=== PATIENT | female | born 1990 | race Caucasian/White ===

== ENCOUNTER 2018-01-19 10:40 | Emergency (ER) | payer BC ==
[2018-01-19 10:47] VITALS: BMI 25.0
[2018-01-19 11:35] LABS: HCG,QUALITATIVE URINE NEGATIVE; URINE APPEARANCE CLEAR; URINE BILIRUBIN NEGATIVE (<2.0 mg/dL); URINE COLOR LTYELLOW; URINE GLUCOSE (UA) NEGATIVE (NEGATIVE); URINE KETONE NEGATIVE (NEGATIVE); URINE LEUK ESTERASE NEGATIVE (NEGATIVE); URINE NITRITE NEGATIVE (NEGATIVE); URINE UROBILINOGEN NEGATIVE mg/dL (0.2-1.0)
[2018-01-19 11:39] LABS: URINE PROTEIN 1+ (NEGATIVE)
[2018-01-19 11:41] LABS: EPI CELLS RARE /HPF (FEW); URINE MUCUS RARE
--- NOTE | 2018-01-19 11:45 | PDOC ---
History of Present Illness - General History Source: Patient Exam Limitations: No Limitations - History of Present Illness Initial Comments: 01/19/18 12:20 The patient is a 27 year old female presenting [facility], with a significant past medical history of ovarian cyst, who presents to the emergency department complaining of abdominal pain, back pain, fever and chills since last night. She reports that she went to an urgent care today and was referred to the ED for further evaluation. Urine test at urgent care was negative as per patient and her fever was as high as 102 F. She was also noted to have white and red blood cells in her urine. She describes her abdominal pain as a burning / cramping sensation in her lower quadrants bilaterally and suprapubic region. The patient denies chest pain, shortness of breath, headache or dizziness. Denies nausea, vomiting, diarrhea and constipation. Allergies: None Past surgical history: None reported Social History: No alcohol, tobacco or drug use reported <Jace Carrillo - Last Filed: 01/19/18 12:16> - General History Source: Patient Exam Limitations: No Limitations <Radha Manuel - Last Filed: 02/22/18 08:56> - General Chief Complaint: Pain Stated Complaint: BODY ACHES, FEVER Past History <Jace Carrillo - Last Filed: 01/19/18 12:16> - Past Medical History COPD: No Other medical history: ovarian cysts - Suicide/Smoking/Psychosocial Hx Smoking History: Never smoked <Radha Manuel - Last Filed: 02/22/18 08:56> - Past Medical History Allergies/Adverse Reactions: Allergies Allergy/AdvReac Type Severity Reaction Status Date / Time No Known Allergies Allergy Verified 01/19/18 10:47 Home Medications: Ambulatory Orders Ciprofloxacin [Cipro (Restricted To Id)] 500 mg PO Q12H 01/19/18 Naproxen Sodium 220 mg PO BID PRN #30 tablet 01/19/18 Nitrofurantoin Monohyd/M-Cryst [Macrobid -] 100 mg PO BID #14 capsule 01/19/18 Review of Systems - Review of Systems Comments:: 01/19/18 12:20 GENERAL/CONSTITUTIONAL: (+) Fever and chills. No weakness. HEAD, EYES, EARS, NOSE AND THROAT: No change in vision. No ear pain or discharge. No sore throat. CARDIOVASCULAR: No chest pain or shortness of breath. RESPIRATORY: No cough, wheezing, or hemoptysis. GASTROINTESTINAL: (+) Abdominal pain. No nausea, vomiting, diarrhea or constipation. GENITOURINARY: No dysuria, frequency, or change in urination. MUSCULOSKELETAL: No joint or muscle swelling or pain. No neck or back pain. SKIN: No rash NEUROLOGIC: No headache, vertigo, loss of consciousness, or change in strength/ sensation. ENDOCRINE: No increased thirst. No abnormal weight change. HEMATOLOGIC/LYMPHATIC: No anemia, easy bleeding, or history of blood clots. ALLERGIC/IMMUNOLOGIC: No hives or skin allergy. <Jace Carrillo - Last Filed: 01/19/18 12:16> *Physical Exam - Vital Signs Last Vital Signs Temp Pulse Resp BP Pulse Ox 100.7 F H 106 H 20 117/62 99 01/19/18 10:43 01/19/18 10:43 01/19/18 10:43 01/19/18 10:43 01/19/18 10:43 - Physical Exam Comments: 01/19/18 12:21 GENERAL: Awake, alert, and fully oriented, in no acute distress HEAD: No signs of trauma EYES: PERRLA, EOMI, sclera anicteric, conjunctiva clear ENT: Auricles normal inspection, nares patent. Moist mucosa NECK: Normal ROM, supple, no JVD, or masses LUNGS: Breath sounds equal, clear to auscultation bilaterally. No wheezes, and no crackles HEART: Regular rate and rhythm, normal S1 and S2, no murmurs, rubs or gallops ABDOMEN: (+) Bilateral lower quadrant tenderness and suprapubic tenderness, no rebound or guarding. Soft, normoactive bowel sounds. No masses. EXTREMITIES: Normal range of motion, no edema. No clubbing or cyanosis. No cords, erythema, or tenderness NEUROLOGICAL: Alert and oriented x 3. Moves all extremities. Face is symmetric. SKIN: Warm, Dry, normal turgor, no rashes or lesions noted. <Jace Carrillo - Last Filed: 01/19/18 12:16> - Vital Signs Last Vital Signs Temp Pulse Resp BP Pulse Ox 100.7 F H 106 H 20 117/62 99 01/19/18 10:43 01/19/18 10:43 01/19/18 10:43 01/19/18 10:43 01/19/18 10:43 <Radha Manuel - Last Filed: 02/22/18 08:56> Procedures - Bedside Ultrasound Other: renal ultrasound <Radha Manuel - Last Filed: 02/22/18 08:56> ED Treatment Course - ADDITIONAL ORDERS Additional order review: Laboratory Results 01/19/18 11:25 Urine Color Ltyellow Urine Appearance Clear Urine pH 6.0 Ur Specific [place] 1.016 Urine Protein 1+ H Urine Glucose (UA) Negative Urine Ketones Negative Urine Blood 2+ H Urine Nitrite Negative Urine Bilirubin Negative Urine Urobilinogen Negative Ur Leukocyte Esterase Negative Urine WBC (Auto) 1 Urine RBC (Auto) 9 Ur Epithelial Cells Rare Urine Mucus Rare Urine HCG, Qual Negative <Jace Carrillo - Last Filed: 01/19/18 12:16> - LABORATORY CBC & Chemistry Diagram: 01/19/18 12:30 01/19/18 12:10 - ADDITIONAL ORDERS Additional order review: Laboratory Results 01/19/18 11:25 Urine HCG, Qual Negative <Radha Manuel - Last Filed: 02/22/18 08:56> Medical Decision Making - Medical Decision Making 01/19/18 11:37 27 yo F with h/o ovarian cyst here wtih c/o bilat lower quad pain, suprapubic pain, dysrua, subjective chills and fever. pain constant, crampy. started last pm 01/19/18 13:35 Patient denies any history of similar pain in the past. No known history of kidney stones denies any vaginal discharge. Was seen at the urgent care and noted to have hematuria however the patient is just finishing her menstruation . Was given ceftriaxone 250 mg IM and sent to the ED for evaluation patient states pain is worse with walking no known surgical history On exam the patient has bilateral lower quadrant superpubic tenderness no CVA tenderness. Pelvic is with scant old blood in the vaginal vault no CMT mild left adnexal tenderness but no adnexal masses X Differential diagnosis includes renal colic, pelvic inflammatory disease, UTI or pyelonephritis, appendicitis is less likely, ruptured ovarian cyst and torsion considered. We'll form bedside focused ultrasound renal, and pelvic ultrasound depending on findings we'll consider CT abdomen and pelvis to evaluate further for other causes. focused ED ultrasound of bilateral kidneys obtained, indication: hematuria , flank pain. bilateral kidneys were scanned in two planes, saggital and transvers. No hydronephrosis noted. Bladder is nondistended incidental left adnexal cyst measuring 1.86 cm Impression: no hydronephrosis, undistended bladder, incidental left adnexal cyst <Radha Manuel - Last Filed: 02/22/18 08:56> *DC/Admit/Observation/Transfer - Attestations Scribe Attestion: 01/19/18 12:22 Documentation prepared by Jace Carrillo, acting as biomedical equipment tech for Radha Manuel MD <Jace Carrillo - Last Filed: 01/19/18 12:16> <Radha Manuel - Last Filed: 02/22/18 08:56> Diagnosis at time of Disposition: Hemorrhagic cyst - Discharge Dispostion Disposition: HOME Condition at time of disposition: Stable - Prescriptions Prescriptions: Naproxen Sodium 220 mg PO BID PRN #30 tablet PRN Reason: Pain Nitrofurantoin Monohyd/M-Cryst [Macrobid -] 100 mg PO BID #14 capsule - Referrals Referrals: Corey Pierson MD [Staff Physician] - - Patient Instructions Printed Discharge Instructions: DI for Ovarian Cyst Additional Instructions: Ms Potter Thank you for coming in to the ER today Please be sure to follow up with your Application Security Engineer within 2 -3 business days You must return to the ER for increased pain, pain when your abdomen is palpated , if you notice abdominal distention, if you have heavy vaginal bleeding - saturating 2 pads/hour for 2 hours OR any thing that concerns you Please take medications as prescribed - Post Discharge Activity Forms/Work/School Notes: Back to Work
[2018-01-19] MEDS ORDERED: SODIUM CHLORIDE 0.9% 500 ML INFUS.BAG IV ONE (12:00)
[2018-01-19 12:42] LABS: BASO % 0.4 % (0-2.0); HEMATOCRIT 37.6 % (32.4-45.2); HEMOGLOBIN 12.9 GM/dL (10.7-15.3); LYMPH % 12.8 % (8-40); MCH 31.5 pg (25.7-33.7); MCHC 34.3 g/dl (32.0-36.0); MEAN CELL VOLUME 91.6 fl (80-96); MONO % 5.8 % (3.8-10.2); PLATELET COUNT 220 K/MM3 (134-434); RDW 13.2 % (11.6-15.6); WHITE BLOOD COUNT 8.5 K/mm3 (4.0-10.0)
[2018-01-19] MEDS ORDERED: ACETAMINOPHEN 1000 MG/100 ML VIAL (NON FORMULARY) IVPB ONE (12:47)
[2018-01-19] MEDS ORDERED: ACETAMINOPHEN INJECTION 100 ML IVPB ONE (12:50)
[2018-01-19 13:05] LABS: ANION GAP 5 (8-16); BLOOD UREA NITROGEN 7 mg/dL (7-18); CALCIUM 8.7 mg/dL (8.5-10.1); CHLORIDE 103 mmol/L (98-107); CO2 27 mmol/L (21-32); CREATININE 0.8 mg/dL (0.55-1.02); GLUCOSE,RANDOM 91 mg/dL (74-106); POTASSIUM 3.9 mmol/L (3.5-5.1); SGOT/AST 15 U/L (15-37); SGPT/ALT 15 U/L (12-78); SODIUM 135 mmol/L (136-145)
[2018-01-19 13:06] LABS: ALK PHOS 77 U/L (45-117); BILIRUBIN,TOTAL 1.3 mg/dL (0.2-1.0); TOT PROT 7.9 g/dl (6.4-8.2)
[2018-01-19] MEDS ORDERED: KETOROLAC TROMETHAMINE 30 MG/1 ML VIAL IVPUSH ONE (15:43)
[2018-01-19] MEDS ORDERED: KETOROLAC TROMETHAMINE 30 MG/1 ML VIAL ONE (16:01)
[2018-01-19 17:55] VITALS: BP 104/57; PULSE 70; TEMP 98.2
--- NOTE | 2018-01-19 18:04 | PDOC ---
*Physical Exam - Vital Signs Last Vital Signs Temp Pulse Resp BP Pulse Ox 98.2 F 70 16 104/57 98 01/19/18 17:55 01/19/18 17:55 01/19/18 17:55 01/19/18 17:55 01/19/18 17:55 ED Treatment Course - LABORATORY CBC & Chemistry Diagram: 01/19/18 12:30 01/19/18 12:10 - ADDITIONAL ORDERS Additional order review: Laboratory Results 01/19/18 01/19/18 12:10 11:25 Sodium 135 L Potassium 3.9 Chloride 103 Carbon Dioxide 27 Anion Gap 5 L BUN 7 Creatinine 0.8 Creat Clearance w eGFR > 60 Random Glucose 91 Calcium 8.7 Total Bilirubin 1.3 H AST 15 ALT 15 Alkaline Phosphatase 77 Total Protein 7.9 Albumin 4.0 Urine Color Ltyellow Urine Appearance Clear Urine pH 6.0 Ur Specific [place] 1.016 Urine Protein 1+ H Urine Glucose (UA) Negative Urine Ketones Negative Urine Blood 2+ H Urine Nitrite Negative Urine Bilirubin Negative Urine Urobilinogen Negative Ur Leukocyte Esterase Negative Urine WBC (Auto) 1 Urine RBC (Auto) 9 Ur Epithelial Cells Rare Urine Mucus Rare Urine HCG, Qual Negative 01/19/18 12:30 RBC 4.10 MCV 91.6 MCHC 34.3 RDW 13.2 MPV 10.0 Neutrophils % 81.0 Lymphocytes % 12.8 Monocytes % 5.8 Eosinophils % 0.0 Basophils % 0.4 - Medications Given in the ED: ED Medications Discontinued Medications Generic Name Dose Route Start Last Admin Trade Name Yonis PRN Reason Stop Dose Admin Acetaminophen 1,000 mg 01/19/18 12:47 01/19/18 12:48 Ofirmev Injection - IVPB 01/19/18 12:48 1,000 mg ONCE ONE Administration Ketorolac Tromethamine 30 mg 01/19/18 15:43 01/19/18 15:58 Toradol Injection - IVPUSH 01/19/18 15:44 30 mg ONCE ONE Administration Sodium Chloride 1,000 ml 01/19/18 12:00 01/19/18 12:38 Normal Saline - IV 01/19/18 12:01 1,000 ml ONCE ONE Administration Medical Decision Making - Medical Decision Making 01/19/18 17:59 I received Ms Potter on sign out Briefly, she is a 27 yo F who presented to the ER with a complaint of abdominal pain Pelvic US demonstrated hemorrhagic cyst Pt noted to have a temp of 100.[address] of the abd and pelvis CT deomnstrates Nml liver, gallbladder, pancreas, adrenals and spleen Left renal cyst Normal appendix Bilateral ovarian cysts largest one in the right ovary measuring 3.4 cm, Left ovary measuring 2 cm ? UTI Will discharge on pain medications AND Keflex Laboratory Tests 01/19/18 12:30 Hgb 12.9 Hct 37.6 Clinical impression: hemorrhagic cyst 01/19/18 18:03 *DC/Admit/Observation/Transfer Diagnosis at time of Disposition: Hemorrhagic cyst - Discharge Dispostion Disposition: HOME Condition at time of disposition: Stable Decision to Admit order: No - Referrals Referrals: Corey Pireson MD [Staff Physician] - - Patient Instructions Printed Discharge Instructions: DI for Ovarian Cyst Additional Instructions: Ms Potter Thank you for coming in to the ER today Please be sure to follow up with your Red Lead Burner within 2 -3 business days You must return to the ER for increased pain, pain when your abdomen is palpated , if you notice abdominal distention, if you have heavy vaginal bleeding - saturating 2 pads/hour for 2 hours OR any thing that concerns you Please take medications as prescribed - Post Discharge Activity Forms/Work/School Notes: Back to Work
== END 2018-01-19 18:26 | disposition home or self-care (01) ==
LOC: JER 10:40
PROC: 3E033NZ Introduction of Analgesics, Hypnotics, Sedatives into Peripheral Vein, Percutaneous Approach (ICD-10-PCS; principal; 2018-01-19)
PROC: 3E0333Z Introduction of Anti-inflammatory into Peripheral Vein, Percutaneous Approach (ICD-10-PCS; 2018-01-19)
DX: N83.202 Unspecified ovarian cyst, left side (principal); N83.201 Unspecified ovarian cyst, right side
CPT/HCPCS: 36415; 74177-TC; 76830-TC; 80053; 81003; 81015; 84703; 85025; 87086; 99283-25; J0131

== ENCOUNTER 2019-01-16 20:30 | Emergency (ER) | payer BC, OTHER ==
[2019-01-16] MEDS ORDERED: SODIUM CHLORIDE 1,000 ML IV STA (20:46)
--- NOTE | 2019-01-16 20:46 | PDOC ---
Rapid Medical Evaluation Medical Evaluation: Allergies Allergy/AdvReac Type Severity Reaction Status Date / Time No Known Allergies Allergy Verified 01/19/18 10:47 I have performed a brief in-person evaluation of this patient. The patient presents with a chief complaint of: c/o diarrhea x 5 days (almost 7- 8 episodes a day); denies fever, vomiting; was on cruise recently; got Cipro from urgent care 3 days ago but it is not helping Pertinent physical exam findings: In NAD I have ordered the following: Labs, IVF The patient will proceed to the ED for further evaluation. 01/16/19 20:42
[2019-01-16 20:48] VITALS: BP 112/52; PULSE 82; TEMP 99; BMI 25.2
[2019-01-16 21:15] LABS: BASO % 0.5 % (0-2.0); EOS % 1.1 % (0-4.5); HEMATOCRIT 38.3 % (32.4-45.2); HEMOGLOBIN 12.9 GM/dL (10.7-15.3); LYMPH % 31.4 % (8-40); MCH 31.6 pg (25.7-33.7); MCHC 33.8 g/dl (32.0-36.0); MEAN CELL VOLUME 93.5 fl (80-96); MEAN PLT VOLUME 10.6 fl (7.5-11.1); MONO % 8.9 % (3.8-10.2); NEUT % 58.1 % (42.8-82.8); PLATELET COUNT 242 K/MM3 (134-434); RDW 13.3 % (11.6-15.6); WHITE BLOOD COUNT 7.1 K/mm3 (4.0-10.0)
[2019-01-16 21:49] LABS: ALBUMIN 3.8 g/dl (3.4-5.0); BILIRUBIN,TOTAL 0.4 mg/dL (0.2-1); CALCIUM 8.9 mg/dL (8.5-10.1); CREATININE 0.7 mg/dL (0.55-1.3); MAGNESIUM 2.3 mg/dL (1.8-2.4); POTASSIUM 3.9 mmol/L (3.5-5.1); TOT PROT 7.5 g/dl (6.4-8.2)
--- NOTE | 2019-01-16 22:03 | PDOC ---
History of Present Illness - General Chief Complaint: Pain Stated Complaint: ABD PAIN Time Seen by Provider: 01/16/19 20:43 History Source: Patient Exam Limitations: No Limitations - History of Present Illness Travel History: Yes (Cruise from [place] to [facility] returned on 01/09) Initial Comments: 01/16/19 21:52 HISTORY OF PRESENT ILLNESS: 28-year-old woman past medical history of ovarian cyst who presents emergency department for evaluation of diarrhea for 5 days. Patient reports stick a cruise from [place] to [facility] for which returns [place] on 01/09. 2 days after returning from the cruise patient developed abdominal cramping and loose watery stools. Patient was reporting 10-12 bowel movements daily with yellow/green-colored stools. Patient was seen at urgent care Center 3 days ago and was started on ciprofloxacin 500 mg twice a day. Patient reports her bowel frequency is decreased approximately 5 times today. Patient reports bowel movement is still yellow/green but has firmed up a little. Patient attributes this to eating plantains. Patient reports cramping in her belly has become less intense currently rates 4/10. No sick contacts. Cruise from [place] to [facility] returning on PAST MEDICAL HISTORY: Denies past medical history SURGICAL HISTORY: Denies ALLERGIES: No known drug allergies REVIEW OF SYSTEMS General/Constitutional: Denies fever or chills. Denies weakness, weight change. HEENT: Denies change in vision. Denies ear pain or discharge. Denies sore throat. Cardiovascular: Denies chest pain or shortness of breath. Respiratory: Denies cough, wheezing, or hemoptysis. Gastrointestinal: see HPI Genitourinary: Denies dysuria, frequency, or change in urination. Musculoskeletal: Denies joint or muscle swelling or pain. Denies neck or back pain. Skin and breasts: Denies rash or easy bruising. Neurologic: Denies headache, vertigo, loss of consciousness, or loss of sensation. Psychiatric: Denies depression or anxiety. Endocrine: Denies increased thirst. Denies abnormal weight change. Hematologic/Lymphatic: Denies anemia, easy bleeding, or history of blood clots. Allergic/Immunologic: Denies hives or skin allergy. Denies latex allergy. PHYSICAL EXAM General Appearance: Well-appearing, appropriately dressed. No apparent distress , no intoxication. Respiratory/Chest: Lungs CTAB. No shortness of breath, chest tenderness, respiratory distress, accessory muscle use. No crackles, rales, rhonchi, stridor , wheezing, dullness Cardiovascular: RRR. S1, S2. No JVD, murmur, bradycardia, tachycardia. Vascular Pulses: Dorsalis-Pedis (R): 2+, Dorsalis-Pedis (L): 2+ Gastrointestinal/Abdominal: Hyperactive bowel sounds. Abdomen soft, non- distended. RLQ tenderness with rebound tenderness. No organomegaly, pulsatile mass, guarding, hernia, hepatomegaly, splenomegaly. Lymphatic: No adenopathy, tenderness. 01/16/19 22:05 Past History - Past Medical History Allergies/Adverse Reactions: Allergies Allergy/AdvReac Type Severity Reaction Status Date / Time No Known Allergies Allergy Verified 01/16/19 20:48 Home Medications: Ambulatory Orders Ciprofloxacin [Cipro (Restricted To Id)] 500 mg PO Q12H 01/19/18 Naproxen Sodium 220 mg PO BID PRN #30 tablet 01/19/18 Nitrofurantoin Monohyd/M-Cryst [Macrobid -] 100 mg PO BID #14 capsule 01/19/18 COPD: No - Suicide/Smoking/Psychosocial Hx Smoking History: Never smoked Have you smoked in the past 12 months: No Information on smoking cessation initiated: No Hx Alcohol Use: No Drug/Substance Use Hx: No *Physical Exam - Vital Signs Last Vital Signs Temp Pulse Resp BP Pulse Ox 99.0 F 82 18 112/52 L 100 01/16/19 20:45 01/16/19 20:45 01/16/19 20:45 01/16/19 20:45 01/16/19 20:45 ED Treatment Course - LABORATORY CBC & Chemistry Diagram: 01/16/19 20:55 01/16/19 20:54 - ADDITIONAL ORDERS Additional order review: Laboratory Results 01/16/19 20:54 Sodium 136 Potassium 3.9 Chloride 103 Carbon Dioxide 26 Anion Gap 7 L BUN 4 L Creatinine 0.7 Est GFR (CKD-EPI)AfAm 134.75 Est GFR (CKD-EPI)NonAf 116.26 Random Glucose 98 Calcium 8.9 Magnesium 2.3 Total Bilirubin 0.4 AST 18 ALT 21 Alkaline Phosphatase 63 Total Protein 7.5 Albumin 3.8 01/16/19 20:55 RBC 4.10 MCV 93.5 MCHC 33.8 RDW 13.3 MPV 10.6 Neutrophils % 58.1 D Lymphocytes % 31.4 D Monocytes % 8.9 Eosinophils % 1.1 D Basophils % 0.5 - RADIOLOGY Radiology Studies Ordered: Category Date Time Status ABDOMEN & PELVIS CT WITH CONTR [CT] Stat CT Scan 01/16/19 21:51 Ordered Medical Decision Making - Medical Decision Making 01/16/19 22:06 A/P: 28-year-old woman with diarrhea for 5 days Hyperactive bowel sounds Right lower quadrant tenderness with rebound tenderness Differential diagnosis includes but is not limited to C. difficile, parasitic infection, neurovirus, appendicitis Basic labs Urinalysis Urine testing Stool for O&P Stool for C. difficile IV fluids CTAP with IV contrast Reassess 01/17/19 00:35 CT scan is read by imaging fire prevention officer: Short segment of moderately thinking: At hepatic flexure probably colitis and consider follow-up colonoscopy to exclude mass. No bowel obstruction, free fluid or free air. Normal appendix. Several prominent right lower quadrant mesenteric lymph nodes probably inflammatory. Unremarkable pancreas and gallbladder. Subsequent cortical hypodensities bilateral kidneys. Small umbilical hernia containing fat. 2.4 cm involuting follicle right ovary. PO trial 01/17/19 00:42 Patient is tolerating food without difficulty. We'll discharge the patient home to continue her Cipro as previously prescribed and to follow up with the PMD as needed. Patient was unable to provide a stool sample here. I discussed the physical exam findings, ancillary test results and final diagnoses with the patient. I answered all of the patient's questions. The patient was satisfied with the care received and felt comfortable with the discharge plan and treatment plan. The patient will call their primary care physician within 24 hours to arrange follow-up and will return to the Emergency Department with any new, persistent or worsening symptoms. *DC/Admit/Observation/Transfer Diagnosis at time of Disposition: Colitis - Discharge Dispostion Disposition: HOME Condition at time of disposition: Stable Decision to Admit order: No - Referrals Referrals: Dada Weiss [Primary Care Provider] - - Patient Instructions Additional Instructions: Keep well-hydrated. Diet with bananas, rice, applesauce and toast is usually nonoffensive to the stomach. It this foods and slowly add foods with more spice as tolerated. Make an appointment for reevaluation which her primary doctor symptoms continue. Thank you very much for treasonous provider emergent health care needs. - Post Discharge Activity
[2019-01-16 22:36] LABS: EPI CELLS 3.9 /HPF (0-5/HPF); PH,URINE 6.5 (5.0-8.0); URINE APPEARANCE CLEAR; URINE BACTERIA 271.3 /hpf (NEGATIVE); URINE BILIRUBIN NEGATIVE (NEGATIVE); URINE CASTS 1 /lpf (0-8); URINE COLOR YELLOW; URINE GLUCOSE (UA) NEGATIVE (NEGATIVE); URINE KETONE NEGATIVE (NEGATIVE); URINE LEUK ESTERASE NEGATIVE (NEGATIVE); URINE NITRITE NEGATIVE (NEGATIVE); URINE PROTEIN NEGATIVE (NEGATIVE); URINE RBC 1 /hpf (0-4); URINE UROBILINOGEN 0.2 mg/dL (0.2-1.0); URINE WBC 2 /hpf (0-5)
--- NOTE | 2019-01-17 00:48 | PDOC ---
*Physical Exam - Vital Signs Last Vital Signs Temp Pulse Resp BP Pulse Ox 99.0 F 82 18 112/52 L 100 01/16/19 20:45 01/16/19 20:45 01/16/19 20:45 01/16/19 20:45 01/16/19 20:45 ED Treatment Course - LABORATORY CBC & Chemistry Diagram: 01/16/19 20:55 01/16/19 20:54 - ADDITIONAL ORDERS Additional order review: Laboratory Results 01/16/19 01/16/19 01/16/19 22:10 22:10 20:54 Sodium 136 Potassium 3.9 Chloride 103 Carbon Dioxide 26 Anion Gap 7 L BUN 4 L Creatinine 0.7 Est GFR (CKD-EPI)AfAm 134.75 Est GFR (CKD-EPI)NonAf 116.26 Random Glucose 98 Calcium 8.9 Magnesium 2.3 Total Bilirubin 0.4 AST 18 ALT 21 Alkaline Phosphatase 63 Total Protein 7.5 Albumin 3.8 Urine Color Yellow Urine Appearance Clear Urine pH 6.5 Ur Specific [place] 1.006 L Urine Protein Negative Urine Glucose (UA) Negative Urine Ketones Negative Urine Blood Trace Urine Nitrite Negative Urine Bilirubin Negative Urine Urobilinogen 0.2 Ur Leukocyte Esterase Negative Urine WBC (Auto) 2 Urine RBC (Auto) 1 Urine Casts (Auto) 1 U Epithel Cells (Auto) 3.9 Urine Bacteria (Auto) 271.3 Urine HCG, Qual Negative 01/16/19 20:55 RBC 4.10 MCV 93.5 MCHC 33.8 RDW 13.3 MPV 10.6 Neutrophils % 58.1 D Lymphocytes % 31.4 D Monocytes % 8.9 Eosinophils % 1.1 D Basophils % 0.5 - Medications Given in the ED: ED Medications Discontinued Medications Generic Name Dose Route Start Last Admin Trade Name Freq PRN Reason Stop Dose Admin Sodium Chloride 1,000 mls @ 1,000 mls/hr 01/16/19 20:46 01/16/19 22:18 Normal Saline - IV 01/16/19 21:45 1,000 mls/hr ASDIR STA Administration Medical Decision Making - Medical Decision Making 01/17/19 00:47 Case reviewed with VENU Rowell Agree with assessment and plan *DC/Admit/Observation/Transfer Diagnosis at time of Disposition: Colitis - Discharge Dispostion Disposition: HOME Condition at time of disposition: Stable - Referrals Referrals: Dada Weiss [Primary Care Provider] - - Patient Instructions Additional Instructions: Keep well-hydrated. Diet with bananas, rice, applesauce and toast is usually nonoffensive to the stomach. It this foods and slowly add foods with more spice as tolerated. Make an appointment for reevaluation which her primary doctor symptoms continue. Thank you very much for treasonous provider emergent health care needs. - Post Discharge Activity
== END 2019-01-17 00:55 | disposition home or self-care (01) ==
LOC: JER 20:30
PROC: 3E0337Z Introduction of Electrolytic and Water Balance Substance into Peripheral Vein, Percutaneous Approach (ICD-10-PCS; principal; 2019-01-16)
DX: K52.9 Noninfective gastroenteritis and colitis, unspecified (principal)
CPT/HCPCS: 36415; 74177-TC; 80053; 81003; 83735; 84703; 85025; 99282-25; J7030